=== PATIENT | female | born 1950 | race Caucasian/White ===

== ENCOUNTER 2016-12-23 13:16 | Emergency (ER) | payer MEDICARE, OTHER ==
[2016-12-23] MEDS ORDERED: Meclizine 25 MG Tab PO ONE (13:54)
--- NOTE | 2016-12-23 13:54 | EDM.PDOC ---
ED HPI GENERAL MEDICAL PROBLEM - General Chief Complaint: Head Injury Stated Complaint: FALL Time Seen by Provider: 12/23/16 13:22 Source of Information: Reports: Patient, EMS History Limitations: Reports: Altered Mental Status, Physical Impairment - History of Present Illness INITIAL COMMENTS - FREE TEXT/NARRATIVE: 66 y.o.w.jose fell while going into her car onto her back, no LOC. EMS was called. Pt was on a back board, Sheryl collar was applied in the ED. Pt c/o Dizziness, had vertigo in the past, H/A neck and mid upper back pain. No other acute medical issues at this time. Onset: Today Onset Date: 12/23/16 Onset Time: 13:00 Duration: Minutes: Location: Reports: Head, Neck, Chest, Abdomen, Back, Pelvis, Lower Extremity, Left (chronic) Quality: Reports: Ache, Dull, Pressure, Sharp, Stabbing, Throbbing Severity: Moderate Improves with: Reports: Rest Worsens with: Reports: Movement Associated Symptoms: Reports: Confusion, Other (Dizzy) Neck Pain Score (Numeric/FACES): 10 Chest Pain Score (Numeric/FACES): 10 - Related Data Allergies Allergy/AdvReac Type Severity Reaction Status Date / Time aspirin Allergy Cannot Verified 12/23/16 13:35 Remember iodine Allergy Hives Verified 12/23/16 13:35 NSAIDS (Non-Steroidal Allergy Cannot Verified 12/23/16 13:35 Anti-Inflamma Remember Sulfa (Sulfonamide Allergy Swelling Verified 12/23/16 13:35 Antibiotics) Home Meds: Home Meds Acetaminophen/HYDROcodone [[place] 325-10 MG] 1 - 2 tab PO Q6H PRN 10/26/15 [ History] FLUoxetine HCl [Prozac] 40 mg PO DAILY 10/26/15 [History] Lidocaine 5% [Lidoderm 5%] 1 patch TOP ASDIRECTED PRN 10/26/15 [History] Oxybutynin Chloride [Ditropan Xl] 10 mg PO DAILY 10/26/15 [History] Simvastatin [Zocor] 20 mg PO DAILY 10/26/15 [History] Cyclobenzaprine [Flexeril] 5 mg PO BEDTIME 10/27/15 [History] Meclizine [Antivert] 25 mg PO BID PRN #20 tab.chew 12/23/16 [Rx] Ondansetron [Zofran ODT] 4 mg PO Q6H PRN #20 tab.dis 12/23/16 [Rx] Past Medical History HEENT History: Reports: None Cardiovascular History: Reports: High Cholesterol Respiratory History: Reports: None Gastrointestinal History: Reports: GERD Genitourinary History: Reports: Urinary Incontinence CONTOUR SANDER History: Reports: None Musculoskeletal History: Reports: Back Pain, Chronic Neurological History: Reports: None Psychiatric History: Reports: Depression Endocrine/Metabolic History: Reports: None Hematologic History: Reports: None Immunologic History: Reports: None Oncologic (Cancer) History: Reports: None Dermatologic History: Reports: None - Past Surgical History Head Surgeries/Procedures: Reports: None HEENT Surgical History: Reports: None Respiratory Surgical History: Reports: None GI Surgical History: Reports: Appendectomy, Bariatric Procedure, Cholecystectomy , Other (See Below) Female Surgical History: Reports: Hysterectomy Endocrine Surgical History: Reports: None Neurological Surgical History: Reports: None Musculoskeletal Surgical History: Reports: Knee Replacement Dermatological Surgical History: Reports: None Social & Family History - Tobacco Use Smoking Status *Q: Current Every Day Smoker Years of Tobacco use: 35 Packs/Tins Daily: 1 Used Tobacco, but Quit: Yes Month Tobacco Last Used: 4 YEARS AGO - Caffeine Use Caffeine Use: Reports: Coffee, Soda, Tea - Recreational Drug Use Recreational Drug Use: No ED ROS GENERAL - Review of Systems Review Of Systems: See Below Constitutional: Reports: Weakness, Fatigue, Other (dizzy) HEENT: Reports: Vertigo, Other (H/A) Respiratory: Reports: No Symptoms Cardiovascular: Reports: No Symptoms Endocrine: Reports: No Symptoms GI/Abdominal: Reports: No Symptoms : Reports: No Symptoms Musculoskeletal: Reports: Neck Pain, Back Pain, Muscle Pain, Other (r knee pain s/o r knee replacement) Skin: Reports: Other (Hematoma post katherin) Neurological: Reports: No Symptoms, Dizziness, Headache Psychiatric: Reports: No Symptoms Hematologic/Lymphatic: Reports: No Symptoms Immunologic: Reports: No Symptoms ED EXAM, HEAD INJURY - Physical Exam Exam: See Below Exam Limited By: Physical Impairment General Appearance: Alert, WD/WN, Mild Distress, Moderate Distress, Obese Head: Scalp Abrasions, Scalp Hematoma (post katherin) Nexus Criteria: Posterior, Midline Cervical Tenderness Eyes: Bilateral Eye: Nystagmus (lat) Ears: Normal External Exam, Normal Canal Nose: Normal Inspection, Normal Mucousa Throat/Mouth: Normal Inspection, Normal Lips, Normal Gums Neck: Limited Range of Motion (sheryl collar in place) Respiratory: No Respiratory Distress Cardiovascular: Normal Peripheral Pulses, Regular Rate, Rhythm, No Edema GI/Abdominal Exam: Normal Bowel Sounds, Soft, Non-Tender, No Organomegaly, No Distention, No Abnormal Bruit, No Mass, Pelvis Stable (Female) Exam: Deferred Rectal (Female) Exam: Deferred Back Exam: Muscle Spasm, Vertebral Tenderness (mid upper back) Extremities: No Evidence of Injury, Pain with Movement (r knee s/p knee replacement) Neurologic: cost control analyst II-XII nml As Tested, No Motor/Sensory Deficits, Alert, Normal Mood/Affect, Oriented x 3 Skin: Normal Color, Warm/Dry - [place] Coma Score Best Eye Response ([place]): (4) Open Spontaneously Best Verbal Response ([place]): (5) Oriented Best Motor Response ([place]): (6) Obeys Commands [place] Total: 15 EKG INTERPRETATION EKG Date: 12/23/16 Time: 15:20 Rhythm: NSR Rate (Beats/Min): 78 [place]: Normal P-Wave: Present QRS: Normal ST-T: Normal QT: Normal Comparison: NA - No Prior EKG Course - Vital Signs Text/Narrative:: 66 y.o.w.f fell while going into her car onto her back, no LOC. EMS was called. Pt was on a back board, Sheryl collar was applied in the ED. Pt c/o Dizziness, had vertigo in the past, H/A neck and mid upper back pain. No other acute medical issues at this time. Is not on ASA, coumadine or any blood thinners. PE: SQ heamtoma mid occiput [id number], mid neck pain, mid upper back pain to palp , r chest wall pain to pal, Lat nystagmus (vertigo) Labs: CBC wnl BMP: GFR 55 INR 1.0 UA: pH 9.0 Imaging: CT head: Sinusitis r max and sphenid, no katherin fx, no bleed CT: C spine NAD T spine X ray: Sup compression (mild) T3 (new old) Ribs; 2nd 3rd 4th and 8th ( all new) as per Dr. Barron verbal report. CT Chest was ordered originally. Impression: Fall, Rib Fxs, SQ hemotoma, sinusitis, mild comp fx T3, Dehydration , Tx: pt refused pain meds, received Zofran, Antivert Reexam: Improved, pt was ambulating on d/c with walker, refused admission Plan: D/C home with instructions. Last Recorded V/S: Last Vital Signs Temp 36.3 C 12/23/16 13:22 Pulse 76 12/23/16 15:30 Resp 16 12/23/16 15:30 BP 131/63 12/23/16 15:30 Pulse Ox 97 12/23/16 15:30 - Orders/Labs/Meds Orders: Active Orders 24 hr Category Date Time Status Cooling Warming Measures [RC] ASDIRECTED Care 12/23/16 13:47 Active Cervical Spine wo Cont [CT] Stat Exams 12/23/16 15:02 Taken Chest Abdomen Pelvis wo Cont [CT] Stat Exams 12/23/16 13:41 Stop Req Chest wo Cont [CT] Stat Exams 12/23/16 13:52 Ordered Head wo Cont [CT] Stat Exams 12/23/16 15:02 Taken Ribs 2V w Chest Rt [CR] Routine Exams 12/23/16 Taken Thoracic Spine 3V [CR] Routine Exams 12/23/16 Taken Ice Bag [Ice Therapy] [OM.PC] Routine Oth 12/23/16 13:47 Ordered EKG 12 Lead [EK] Routine Ther 12/23/16 15:03 Ordered Labs: Laboratory Tests 12/23/16 12/23/16 12/23/16 Range/Units 13:50 13:50 13:50 WBC 6.7 (4.5-12.0) X10-3/uL RBC 5.01 (3.23-5.20) x10(6)uL Hgb 15.0 (11.5-15.5) g/dL Hct 45.3 (30.0-51.3) % MCV 90.6 (80-96) fL MCH 30.0 (27.7-33.6) pg MCHC 33.2 (32.2-35.4) g/dL RDW 12.8 (11.5-15.5) % Plt Count 185 (125-369) X10(3)uL MPV 9.3 (7.4-10.4) fL Neut % (Auto) 67.6 (46-82) % Lymph % (Auto) 23.6 (13-37) % [place] % (Auto) 6.5 (4-12) % Eos % (Auto) 2 (1.0-5.0) % Baso % (Auto) 1 (0-2) % Neut # (Auto) 4.6 (1.6-8.3) # Lymph # (Auto) 1.6 (0.6-5.0) # Canadian # (Auto) 0.4 (0.0-1.3) # Eos # (Auto) 0.1 (0.0-0.8) # Baso # (Auto) 0.0 (0.0-0.2) # PT 11.0 (8.7-11.1) INR 1.09 (0.89-1.13) Sodium 137 (135-145) mmol/L Potassium 3.8 (3.5-5.3) mmol/L Chloride 105 (100-110) mmol/L Carbon Dioxide 23 (23-29) mmol/L BUN 12 (8-23) mg/dL Creatinine 1.0 (0.6-1.3) mg/dL Est Cr Clr Drug Dosing 53.81 mL/min Estimated GFR (MDRD) 55 L (>60) BUN/Creatinine Ratio 12.0 (9-20) Glucose 131 H (80-116) mg/dL Calcium 9.1 (8.6-10.2) mg/dL Urine Color (YELLOW) Urine Appearance (CLEAR) Urine pH (5.0-6.5) Ur Specific [place] (1.010-1.025) Urine Protein (NEGATIVE) mg/dL Urine Glucose (UA) (NEGATIVE) mg/dL Urine Ketones (NEGATIVE) mg/dL Urine Occult Blood (NEGATIVE) Urine Nitrite (NEGATIVE) Urine Bilirubin (NEGATIVE) Urine Urobilinogen (NEGATIVE) mg/dL Ur Leukocyte Esterase (NEGATIVE) Urine RBC (0) Urine WBC (0) Ur Squamous Epith Cells (NS,R,O) Amorphous Sediment Urine Bacteria (NS) Urine Mucus (NS) 12/23/16 Range/Units 15:06 WBC (4.5-12.0) X10-3/uL RBC (3.23-5.20) x10(6)uL Hgb (11.5-15.5) g/dL Hct (30.0-51.3) % MCV (80-96) fL MCH (27.7-33.6) pg MCHC (32.2-35.4) g/dL RDW (11.5-15.5) % Plt Count (125-369) X10(3)uL MPV (7.4-10.4) fL Neut % (Auto) (46-82) % Lymph % (Auto) (13-37) % [place] % (Auto) (4-12) % Eos % (Auto) (1.0-5.0) % Baso % (Auto) (0-2) % Neut # (Auto) (1.6-8.3) # Lymph # (Auto) (0.6-5.0) # Canadian # (Auto) (0.0-1.3) # Eos # (Auto) (0.0-0.8) # Baso # (Auto) (0.0-0.2) # PT (8.7-11.1) INR (0.89-1.13) Sodium (135-145) mmol/L Potassium (3.5-5.3) mmol/L Chloride (100-110) mmol/L Carbon Dioxide (23-29) mmol/L BUN (8-23) mg/dL Creatinine (0.6-1.3) mg/dL Est Cr Clr Drug Dosing mL/min Estimated GFR (MDRD) (>60) BUN/Creatinine Ratio (9-20) Glucose (80-116) mg/dL Calcium (8.6-10.2) mg/dL Urine Color Yellow (YELLOW) Urine Appearance Slightly cloudy (CLEAR) Urine pH 9.0 H (5.0-6.5) Ur Specific [place] 1.015 (1.010-1.025) Urine Protein Negative (NEGATIVE) mg/dL Urine Glucose (UA) Normal (NEGATIVE) mg/dL Urine Ketones Negative (NEGATIVE) mg/dL Urine Occult Blood Negative (NEGATIVE) Urine Nitrite Negative (NEGATIVE) Urine Bilirubin Negative (NEGATIVE) Urine Urobilinogen Normal (NEGATIVE) mg/dL Ur Leukocyte Esterase Negative (NEGATIVE) Urine RBC 0-5 (0) Urine WBC 0-5 (0) Ur Squamous Epith Cells Occasional (NS,R,O) Amorphous Sediment Few Urine Bacteria Few H (NS) Urine Mucus Occasional H (NS) Meds: Medications Discontinued Medications Generic Name Dose Route Start Last Admin Trade Name Freq PRN Reason Stop Dose Admin Meclizine HCl 50 mg 12/23/16 13:54 12/23/16 13:57 Antivert PO 12/23/16 13:55 50 mg ONETIME ONE Administration Ondansetron HCl 8 mg 12/23/16 15:55 12/23/16 15:58 Zofran Odt PO 12/23/16 15:56 8 mg ONETIME ONE Administration Departure - Departure Time of Disposition: 16:08 Disposition: Home, Self-Care 01 Condition: Fair Clinical Impression: Vertigo, Dehydration, moderate Fall Qualifiers: Encounter type: initial encounter Qualified Code(s): W19.XXXA - Unspecified fall, initial encounter Ribs, multiple fractures Qualifiers: Encounter type: initial encounter Fracture type: closed Laterality: right Qualified Code(s): S22.41XA - Multiple fractures of ribs, right side, initial encounter for closed fracture Sinusitis Qualifiers: Sinusitis location: sphenoidal Chronicity: unspecified Qualified Code(s): J32.3 - Chronic sphenoidal sinusitis - Discharge Information Prescriptions: Meclizine [Antivert] 25 mg PO BID PRN #20 tab.chew PRN Reason: Dizziness Ondansetron [Zofran ODT] 4 mg PO Q6H PRN #20 tab.dis PRN Reason: Nausea Instructions: Vertigo, [id number], Dizziness, [id number] Referrals: Ana Rangel PA [Primary Care Provider] - Forms: ED Department Discharge Additional Instructions: Please increase water intake, please take the meds as recommended, please follow up, com back to the ed if your symptoms get worse acutely. - My Orders Last 24 Hours: My Active Orders 12/23/16 Ribs 2V w Chest Rt [CR] Routine Thoracic Spine 3V [CR] Routine 12/23/16 13:41 Chest Abdomen Pelvis wo Cont [CT] Stat 12/23/16 13:47 Cooling Warming Measures [RC] ASDIRECTED Ice Bag [Ice Therapy] [OM.PC] Routine 12/23/16 13:52 Chest wo Cont [CT] Stat 12/23/16 15:02 Cervical Spine wo Cont [CT] Stat Head wo Cont [CT] Stat 12/23/16 15:03 EKG 12 Lead [EK] Routine - Assessment/Plan Last 24 Hours: My Active Orders 12/23/16 Ribs 2V w Chest Rt [CR] Routine Thoracic Spine 3V [CR] Routine 12/23/16 13:41 Chest Abdomen Pelvis wo Cont [CT] Stat 12/23/16 13:47 Cooling Warming Measures [RC] ASDIRECTED Ice Bag [Ice Therapy] [OM.PC] Routine 12/23/16 13:52 Chest wo Cont [CT] Stat 12/23/16 15:02 Cervical Spine wo Cont [CT] Stat Head wo Cont [CT] Stat 12/23/16 15:03 EKG 12 Lead [EK] Routine
[2016-12-23 15:44] VITALS: BP 131/63
[2016-12-23] MEDS ORDERED: Ondansetron 8 MG Tab.DIS PO ONE (15:55)
--- NOTE | 2016-12-23 16:31 | CT ---
INDICATION: Trauma. CT HEAD WITHOUT CONTRAST: Serial contiguous 2.5 and 5-mm sections were obtained through the brain without contrast and revealed some thickening of the lining of the right maxillary antrum. There is some thickening of the lining of the main sphenoidal air cell and the smaller right-sided sphenoidal air cell with what may represent an air-fluid level along a portion of that main sphenoidal air cell. This could represent sinusitis. Mastoid air cells were well aerated. No definite cranial abnormality was identified - no fracture site was seen. A small scalp hematoma is suggested posteriorly at the level of the occipital and posteroparietal, midline and to the right. No shift of midline structures, ventricular abnormalities, or abnormal areas of density were identified. There is noted calcification at the internal carotid arteries. A septum pellucidum cavum is noted of small size, a normal variant. No bleeding site or hematoma was seen. IMPRESSION: 1. No definite acute intracranial abnormality. 2. Internal carotid artery calcifications noted. 3. Question the possibility of sphenoidal sinusitis. Some thickening of the lining of the right maxillary antrum also. Total Exam DLP = 949.36 mGy-cm. Report was called to Dr. Hammond at 1530 hours, 12/23/2016. [id number]
--- NOTE | 2016-12-23 16:33 | CT ---
INDICATION: Trauma. Fell, hitting back of head. CT CERVICAL SPINE: Spiral 2.5-mm axial sections were obtained through the cervical spine with sagittal and coronal reconstructions and revealed prevertebral space to appear normal, bone density to appear normal. Reversal of the normal cervical lordosis is centered at C5-6 with decreased disk space and hypertrophic degenerative changes at that level off vertebral body anteriorly and anterolaterally, most severe on the right, narrowing the right-sided C5-6 neural foramen to a moderate degree. Neural foramina were otherwise patent. Degenerative changes and disk disease are also noted at C6-7, but to a lesser extent than at C5-6 as to hypertrophic change. There are some posterior element hypertrophic degenerative changes which are most notable on the right at C3-4 and C4-5 to a lesser extent, mostly on the left at C4-5. A fracture or dislocation was not identified. Mild degenerative changes are also noted at the atlantoodontoid joint. IMPRESSION: 1. No acute fracture or dislocation. 2. Reversal of normal cervical lordosis and degenerative changes C5-6 area. Right-sided C5-6 neural foramen narrowing. 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 Total Exam DLP = 556.85 mGy-cm. Report was called to Dr. Hammond at 1530 hours, 12/23/2016. [facility]
--- NOTE | 2016-12-23 16:34 | CR ---
INDICATION: Fall, mid back pain and chest pain. RIGHT RIBS WITH CHEST: CHEST: PA view of the chest, 12/23/2016, revealed evidence of exogenous obesity. The heart, mediastinum, and bony structures appear to be intact. An active infiltrate, effusion, contusion, or pneumothorax was not identified. IMPRESSION: No active disease. RIGHT RIBS: Four images of the right ribs were obtained and revealed what appears to be a possibility of acute fracture at the 2nd, 3rd, and 4th ribs anterolaterally. Also, there is suspicion of a fracture at the 8th anterior lateral rib. No other bony abnormality was seen. IMPRESSION: Probable acute right rib fractures at ribs 2, 3, and 4, and possibility of 8th rib fracture on the right. Report was called to Dr. Hammond at 1530 hours, 12/23/2016. [facility]
--- NOTE | 2016-12-25 09:38 | CR ---
INDICATION: Fall, mid back and chest pain. THORACIC SPINE X-RAY: Four images of the thoracic spine were obtained and revealed an appearance suggesting osteoporosis. A superior endplate osteoporotic compression fracture is noted at what appears to be T3 vertebral body. This fracture is of indeterminate age, especially since no old films are available for comparison to this 12/23/2016 examination. There are some minimal hypertrophic degenerative changes off vertebral bodies anterolaterally, especially in the lower middle thoracic spine. Vertebral body and disk heights were otherwise well maintained. The pedicles appear to be intact. IMPRESSION: Compression fracture T3 superior endplate. This is relatively mild with some very minimal anterior loss of vertebral body volume at that level. This compression is of indeterminate age. MTDD
== END 2016-12-23 16:25 | disposition home or self-care (01) ==
LOC: FB.ED 13:16
DX: S22.41XA Multiple fractures of ribs, right side, initial encounter for closed fracture (principal); R42 Dizziness and giddiness; J32.3 Chronic sphenoidal sinusitis; E86.0 Dehydration; Z88.6 Allergy status to analgesic agent; Z88.2 Allergy status to sulfonamides; E78.00 Pure hypercholesterolemia, unspecified; K21.9 Gastro-esophageal reflux disease without esophagitis; F32.9 Major depressive disorder, single episode, unspecified; Z90.710 Acquired absence of both cervix and uterus; Z96.659 Presence of unspecified artificial knee joint; Z90.49 Acquired absence of other specified parts of digestive tract; Z79.899 Other long term (current) drug therapy; W19.XXXA Unspecified fall, initial encounter
CPT/HCPCS: 36415; 70450; 71101; 72072; 72125; 80048; 81001; 85025; 85610; 93005; 99283; 99285; A9270

== ENCOUNTER 2024-10-14 03:09 | Emergency (ER) | payer MEDICARE ==
[2024-10-14] MEDS ORDERED: Sulfamethoxazole/Trimethoprim 800-160 MG Tab PO ONE (03:10)
[2024-10-14 03:41] LABS: APPEARANCE,URINE CLEAR (CLEAR); BILIRUBIN,URINE NEGATIVE (NEGATIVE); COLOR,URINE YELLOW (YELLOW); GLUCOSE,URINE NORMAL (NORMAL); KETONES,URINE NEGATIVE (NEGATIVE); LEUKOCYTE ESTERASE,URINE SMALL (NEGATIVE); NITRITE,URINE NEGATIVE (NEGATIVE); OCCULT BLOOD,URINE MODERATE (NEGATIVE); PROTEIN,URINE NEGATIVE (NEGATIVE); UROBILINOGEN,URINE NORMAL (NEGATIVE)
[2024-10-14 03:59] LABS: BASOPHILS PERCENT AUTO 0.6 % (0.2-1.5); EOSINOPHILS ABSOLUTE AUTO 0.2 x10-3/uL (0.0-0.8); EOSINOPHILS PERCENT AUTO 2.2 % (0.6-8.1); HEMATOCRIT 41.9 % (34.2-48.2); HEMOGLOBIN 14.2 g/dL (11.4-15.5); LYMPHOCYTES ABSOLUTE AUTO 2.2 x10-3/uL (1.0-4.4); LYMPHOCYTES PERCENT AUTO 30.2 % (18.4-52.1); MEAN CORPUSCULAR HEMOGLOBIN 31.3 pg (23.9-33.9); MEAN CORPUSCULAR HGB CONC 33.8 g/dL (31.9-34.8); MEAN CORPUSCULAR VOLUME 92.5 fL (76.7-100.5); MEAN PLATELET VOLUME 9.1 fL (7.1-12.4); MONOCYTES ABSOLUTE AUTO 0.6 x10-3/uL (0.3-1.0); MONOCYTES PERCENT AUTO 8.4 % (4.4-15.7); NEUTROPHILS ABSOLUTE AUTO 4.3 x10-3/uL (1.5-6.3); NEUTROPHILS PERCENT AUTO 58.6 % (30.8-76.2); PLATELET COUNT,PLT 185 x10(3)uL (151-488); RED BLOOD CELL COUNT 4.53 x10(6)uL (3.60-5.20); WHITE BLOOD CELL COUNT,WBC 7.4 x10-3/uL (3.0-10.3)
[2024-10-14 04:02] LABS: BACTERIA,URINE FEW (NS); CALCIUM OXALATE CRYSTALS,URINE OCCASIONAL (NS); SQUAMOUS EPITHELIAL CELLS,UR OCCASIONAL (NS,R,O); WBC,URINE 0-5 (0-5)
[2024-10-14 04:02] LABS: BLOOD UREA NITROGEN,BUN 17 mg/dL (7-18); BUN/CREATININE RATIO 14.2 (9-20); CALCIUM 9.1 mg/dL (8.6-10.2); CARBON DIOXIDE,CO2 25 mmol/L (21-32); CHLORIDE,CL 106 mmol/L (100-110); CREATININE 1.2 mg/dL (0.55-1.02); ESTIMATED GFR 48 mL/min (>60); GLUCOSE RANDOM 102 mg/dL (80-116); POTASSIUM,K 3.5 mmol/L (3.5-5.3); SODIUM,NA 142 mmol/L (135-145)
[2024-10-14 04:03] LABS: AMPHETAMINES SCREEN, URINE NEGATIVE (NEGATIVE); BARBITURATE SCREEN,URINE NEGATIVE (NEGATIVE); BENZODIAZEPINES SCREEN,URINE NEGATIVE (NEGATIVE); METHADONE SCREEN, URINE NEGATIVE (NEGATIVE); METHAMPHETAMINE SCREEN, URINE NEGATIVE (NEGATIVE); OXYCODONE SCREEN,URINE NEGATIVE (NEGATIVE); THC SCREEN,URINE NEGATIVE (NEGATIVE)
[2024-10-14 04:04] LABS: BUPRENORPHINE SCREEN,URINE NEGATIVE (NEGATIVE)
[2024-10-14 04:08] LABS: A/G RATIO 0.9; ALANINE AMINOTRANSFERASE,ALT 16 U/L (12-36); ALBUMIN 3.3 g/dL (3.2-4.6); ALKALINE PHOSPHATASE 80 IU/L (56-112); ASPARTATE AMNIOTRANSFERASE,AST 35 IU/L (5-25); BILIRUBIN TOTAL 0.5 mg/dL (0.1-1.3); PROTEIN TOTAL,TP 6.8 g/dL (6.0-8.0)
[2024-10-14 04:16] LABS: TSH ULTRASENSITIVE 3.96 IU/mL (0.36-3.74)
[2024-10-14 04:17] LABS: ETHANOL BLOOD MEDICAL < 0.03 % (<0.03)
[2024-10-14 05:24] VITALS: BP 120/90; PULSE 85
[2024-10-16 02:25] LABS: THYROXINE FREE 1.3 ng/dL (0.9-1.7)
== END 2024-10-14 05:21 | disposition home or self-care (01) ==
LOC: FB.ED 03:09
DX: N39.0 Urinary tract infection, site not specified (principal); F22 Delusional disorders; E78.00 Pure hypercholesterolemia, unspecified; M19.90 Unspecified osteoarthritis, unspecified site; Z88.6 Allergy status to analgesic agent; Z88.8 Allergy status to other drugs, medicaments and biological substances; Z88.2 Allergy status to sulfonamides; Z79.899 Other long term (current) drug therapy; Z90.49 Acquired absence of other specified parts of digestive tract
CPT/HCPCS: 36415; 80053; 80307; 81001; 84439; 84443; 85025; 87086; 99283; A9270-GY

== ENCOUNTER 2024-10-14 21:45 | Emergency (ER) | payer MEDICARE ==
[2024-10-14] MEDS ORDERED: Albuterol/Ipratropium 3.0-0.5 MG/3 ML Neb Soln NEB ONE (22:51)
[2024-10-15] MEDS: OLANZapine 5 MG Tab PO ONE ×2 (01:04→16:23)
[2024-10-15] MEDS: LORazepam 1 MG Tab PO ONE (01:05)
[2024-10-15 20:34] VITALS: BP 154/76; PULSE 78
== END 2024-10-15 21:10 ==
LOC: FB.ED 21:45
DX: F32.A Depression, unspecified (principal)
CPT/HCPCS: 36415; 80053; 80179; 80307; 81001; 84439; 84443; 85025; 87086; 99283; 99284; A9270-GY

== ENCOUNTER 2024-12-19 20:06 | Emergency (ER) | payer MEDICARE ==
[2024-12-19 21:07] LABS: BASOPHILS ABSOLUTE AUTO 0.1 x10-3/uL (0.0-0.1); BASOPHILS PERCENT AUTO 0.8 % (0.2-1.5); EOSINOPHILS ABSOLUTE AUTO 0.2 x10-3/uL (0.0-0.8); EOSINOPHILS PERCENT AUTO 2.8 % (0.6-8.1); HEMATOCRIT 45.9 % (34.2-48.2); HEMOGLOBIN 15.9 g/dL (11.4-15.5); MEAN CORPUSCULAR HEMOGLOBIN 31.7 pg (23.9-33.9); MEAN CORPUSCULAR HGB CONC 34.8 g/dL (31.9-34.8); MEAN CORPUSCULAR VOLUME 91.4 fL (76.7-100.5); MEAN PLATELET VOLUME 8.9 fL (7.1-12.4); MONOCYTES ABSOLUTE AUTO 0.6 x10-3/uL (0.3-1.0); MONOCYTES PERCENT AUTO 7.8 % (4.4-15.7); NEUTROPHILS ABSOLUTE AUTO 4.5 x10-3/uL (1.5-6.3); NEUTROPHILS PERCENT AUTO 61.6 % (30.8-76.2); PLATELET COUNT,PLT 212 x10(3)uL (151-488); RED BLOOD CELL COUNT 5.02 x10(6)uL (3.60-5.20); RED CELL DISTRIBUTION WIDTH 13.7 % (12.3-16.5); WHITE BLOOD CELL COUNT,WBC 7.3 x10-3/uL (3.0-10.3)
[2024-12-19 21:11] LABS: BLOOD UREA NITROGEN,BUN 19 mg/dL (7-18); BUN/CREATININE RATIO 17.3 (9-20); CALCIUM 9.6 mg/dL (8.6-10.2); CARBON DIOXIDE,CO2 25 mmol/L (21-32); CHLORIDE,CL 106 mmol/L (100-110); CREATININE 1.1 mg/dL (0.55-1.02); ESTIMATED GFR 53 mL/min (>60); GLUCOSE RANDOM 118 mg/dL (80-116); POTASSIUM,K 3.9 mmol/L (3.5-5.3); SODIUM,NA 140 mmol/L (135-145)
[2024-12-19 21:16] LABS: A/G RATIO 0.9; ALANINE AMINOTRANSFERASE,ALT 18 U/L (12-36); ALBUMIN 3.4 g/dL (3.2-4.6); ALKALINE PHOSPHATASE 106 IU/L (56-112); ASPARTATE AMNIOTRANSFERASE,AST 16 IU/L (5-25); BILIRUBIN TOTAL 0.4 mg/dL (0.1-1.3); PROTEIN TOTAL,TP 7.3 g/dL (6.0-8.0); SALICYLATE 1.8 mg/dL (<2.8)
[2024-12-19 21:18] LABS: BILIRUBIN,URINE NEGATIVE (NEGATIVE); GLUCOSE,URINE NORMAL (NORMAL); KETONES,URINE NEGATIVE (NEGATIVE); LEUKOCYTE ESTERASE,URINE NEGATIVE (NEGATIVE); NITRITE,URINE NEGATIVE (NEGATIVE); OCCULT BLOOD,URINE NEGATIVE (NEGATIVE); PROTEIN,URINE NEGATIVE (NEGATIVE); UROBILINOGEN,URINE NORMAL (NEGATIVE)
[2024-12-19 21:22] LABS: ACETAMINOPHEN < 2 ug/mL (<2)
[2024-12-19 21:26] LABS: AMPHETAMINES SCREEN, URINE NEGATIVE (NEGATIVE); BARBITURATE SCREEN,URINE NEGATIVE (NEGATIVE); BENZODIAZEPINES SCREEN,URINE POSITIVE (NEGATIVE); METHADONE SCREEN, URINE NEGATIVE (NEGATIVE); METHAMPHETAMINE SCREEN, URINE NEGATIVE (NEGATIVE); OXYCODONE SCREEN,URINE NEGATIVE (NEGATIVE); THC SCREEN,URINE NEGATIVE (NEGATIVE)
[2024-12-19 21:27] LABS: BUPRENORPHINE SCREEN,URINE NEGATIVE (NEGATIVE)
[2024-12-19 21:29] LABS: APPEARANCE,URINE CLEAR (CLEAR); COLOR,URINE YELLOW (YELLOW)
[2024-12-19 23:32] VITALS: BP 132/70; PULSE 77
== END 2024-12-19 23:19 | disposition home or self-care (01) ==
LOC: FB.ED 20:06
DX: F22 Delusional disorders (principal); E78.00 Pure hypercholesterolemia, unspecified; K21.9 Gastro-esophageal reflux disease without esophagitis; Z90.49 Acquired absence of other specified parts of digestive tract; Z90.710 Acquired absence of both cervix and uterus; Z87.891 Personal history of nicotine dependence; Z79.899 Other long term (current) drug therapy; Z79.82 Long term (current) use of aspirin; Z88.5 Allergy status to narcotic agent; Z91.041 Radiographic dye allergy status; Z88.6 Allergy status to analgesic agent; Z88.2 Allergy status to sulfonamides
CPT/HCPCS: 36415; 80053; 80143; 80179; 80307; 81003; 83735; 85025; 99285